=== PATIENT | female | born 1975 | race Caucasian/White ===

== ENCOUNTER 2020-04-09 11:04 | Emergency (ER) | payer MEDICAID, OTHER ==
[~2020-04-09] VITALS: Ht 162.6 cm; Wt 91.0 kg
[2020-04-09] MEDS ORDERED: OXYCODONE HCL/ACETAMINOPHEN 5/325MG TABLET PO ONE (12:45)
[2020-04-09] MEDS ORDERED: ONDANSETRON HCL 4MG/2ML INJ IV ONE (13:45)
[2020-04-09] MEDS ORDERED: KETAMINE HCL 50 MG/ML 10ML IV ONE (13:45)
[2020-04-09] MEDS ORDERED: PROPOFOL 200MG/20ML VIAL IV PRN (13:45)
[2020-04-09 16:58] VITALS: BP 111/59
== END 2020-04-09 16:58 | disposition home or self-care (01) ==
LOC: ER 11:04
DX: S93.05XA Dislocation of left ankle joint, initial encounter (principal); W01.0XXA Fall on same level from slipping, tripping and stumbling without subsequent striking against object, initial encounter; Y93.E9 Activity, other interior property and clothing maintenance; Y92.018 Other place in single-family (private) house as the place of occurrence of the external cause
CPT/HCPCS: 29505; 73590; 73600; 73610; 82962; 93005; 96374; 96375; 99285; J2405; J2704; J3490